=== PATIENT | male | born 1985 | race African-American/Black ===

== ENCOUNTER 2017-05-26 13:39 | Emergency (ER) | payer MEDICAID ==
[~2017-05-26] VITALS: Ht 175.3 cm; Wt 82.0 kg
[2017-05-26] MEDS ORDERED: IPRATROPIUM BROMIDE (0.02%) 0.5MG/2.5ML NEB HHN STA ×2 (13:55→15:09)
[2017-05-26] MEDS ORDERED: ALBUTEROL (0.083%) 2.5MG/3ML NEB HHN STA ×2 (13:55→15:09)
[2017-05-26] MEDS ORDERED: METHYLPREDNISOLONE SOD SUCC 125 MG/2 ML VIAL IV STA (13:55)
[2017-05-26] MEDS ORDERED: MAGNESIUM 2 G PREMIX 50 ML IV STA (16:01)
[2017-05-26 17:55] VITALS: BP 124/81
== END 2017-05-26 18:25 | disposition home or self-care (01) ==
LOC: ER 15:48
DX: J45.901 Unspecified asthma with (acute) exacerbation (principal); F12.10 Cannabis abuse, uncomplicated
CPT/HCPCS: 71045; 94640; 94644; 96365; 96366; 96375; 99285; J2930; J3475; J7611; Z7610